=== PATIENT | male | born 1975 | race Asian ===

== ENCOUNTER 2022-06-04 13:47 | Outpatient (REF) | payer OTHER, SELFPAY ==
[2022-06-04 14:16] LABS: MANUAL DIFF FLAG NO
[2022-06-04 15:32] LABS: Basophils Percent Auto 0.3 % (0-2); Eosinophils Absolute Auto 0.1 X10*3/uL (0.0-0.4); Eosinophils Percent Auto 1.6 % (0-4); Hematocrit 44.1 % (42.0-52.0); Hemoglobin 14.6 g/dl (14.0-18.0); Imm Gran Abs Auto 0.01 X10*3/uL (0.00-0.03); Imm Gran Pct Auto 0.2 % (0.0-0.4); Lymphocytes Absolute Auto 1.7 X10*3/uL (1.2-4.9); Lymphocytes Percent Auto 27.9 % (20-40); Mean Corpuscular HGB Conc 33.1 g/dl (31.0-36.0); Mean Corpuscular Volume 87.7 fL (80.0-98.0); Mean Platelet Volume 10.2 fL (9.4-12.4); Monocytes Absolute Auto 0.3 X10*3/uL (0.1-1.2); Monocytes Percent Auto 5.1 % (2-11); Neutrophils Percent Auto 64.9 % (45-73); Platelet Count 228 X10*3/uL (160-400); Red Blood Count 5.03 X10*6/uL (4.60-5.80); Red Cell Distribution Width 13.3 % (11.0-16.0); White Blood Count 6.1 X10*3/uL (4.8-10.8)
[2022-06-04 16:20] LABS: Erythrocyte Sedimentation Rate 5 MM/HR (0-15)
[2022-06-04 17:49] LABS: Alanine Aminotransferase 16 U/L (0-40); Albumin Level 4.5 g/dL (3.5-5.0); Alkaline Phosphatase 70 U/L (39-117); Anion Gap 11 (12-20); Aspartate Amino Transferase 21 U/L (5-37); Bilirubin Total 0.4 mg/dL (0.0-1.0); Blood Urea Nitrogen 19 mg/dL (9-16); C Reactive Protein < 0.10 mg/dL (< or = 0.50); Calcium 9.8 mg/dL (8.4-10.2); Carbon Dioxide 27 mmol/L (22-29); Chloride 105 mmol/L (96-108); Cholesterol 195 mg/dL; Estimated Glomerular Filt Rate 55; Glucose Random 93 mg/dL (60-115); HDL Cholesterol 41 mg/dL; LDL Cholesterol Calculated 134 mg/dl; Potassium 4.6 mmol/L (3.3-5.1); Sodium 138 mmol/L (135-145); Total Protein 7.2 g/dL (6.5-8.0); Triglycerides 103 mg/dL; Uric Acid 7.4 mg/dL (3.4-7.0)
[2022-06-04 20:50] LABS: Estimated Average Glucose 108 mg/dL; Hemoglobin A1c % 5.4 %
== END 2022-06-04 13:48 | disposition home or self-care (01) ==
LOC: HO.LAB 13:47
PROVIDERS: PCP Pediatrics; Visit Provider Student in an Organized Health Care Education/Training Program
DX: M10.9 Gout, unspecified (principal); E88.81 Metabolic syndrome and other insulin resistance
CPT/HCPCS: 36415; 80053; 80061; 83036; 84550; 85025; 85652; 86140

== ENCOUNTER 2022-07-15 09:24 | Outpatient (REF) | payer OTHER, SELFPAY ==
[2022-07-15 09:43] LABS: MANUAL DIFF FLAG NO
[2022-07-15 10:30] LABS: Basophils Percent Auto 0.1 % (0-2); Eosinophils Absolute Auto 0.1 X10*3/uL (0.0-0.4); Hemoglobin 15.5 g/dl (14.0-18.0); Imm Gran Abs Auto 0.03 X10*3/uL (0.00-0.03); Imm Gran Pct Auto 0.3 % (0.0-0.4); Lymphocytes Absolute Auto 1.4 X10*3/uL (1.2-4.9); Lymphocytes Percent Auto 13.3 % (20-40); Mean Corpuscular Hemoglobin 29.1 pg (27.0-33.0); Mean Corpuscular Volume 88.3 fL (80.0-98.0); Mean Platelet Volume 10.3 fL (9.4-12.4); Monocytes Absolute Auto 0.7 X10*3/uL (0.1-1.2); Monocytes Percent Auto 6.6 % (2-11); Neutrophils Absolute Auto 8.1 x10*3/uL (2.0-8.3); Neutrophils Percent Auto 78.7 % (45-73); Platelet Count 238 X10*3/uL (160-400); Red Blood Count 5.32 X10*6/uL (4.60-5.80); Red Cell Distribution Width 13.2 % (11.0-16.0); White Blood Count 10.3 X10*3/uL (4.8-10.8)
[2022-07-15 10:54] LABS: Alanine Aminotransferase 19 U/L (0-40); Albumin Level 4.3 g/dL (3.5-5.0); Alkaline Phosphatase 78 U/L (39-117); Anion Gap 11 (12-20); Aspartate Amino Transferase 20 U/L (5-37); Bilirubin Total 0.3 mg/dL (0.0-1.0); Blood Urea Nitrogen 20 mg/dL (9-16); Calcium 9.8 mg/dL (8.4-10.2); Carbon Dioxide 26 mmol/L (22-29); Chloride 105 mmol/L (96-108); Estimated Glomerular Filt Rate 51; Glucose Random 92 mg/dL (60-115); Potassium 4.3 mmol/L (3.3-5.1); Sodium 138 mmol/L (135-145); Total Protein 7.4 g/dL (6.5-8.0); Uric Acid 5.3 mg/dL (3.4-7.0)
== END 2022-07-15 09:25 | disposition home or self-care (01) ==
LOC: HO.LAB 09:24
PROVIDERS: PCP Pediatrics; Visit Provider Student in an Organized Health Care Education/Training Program
DX: M1A.3790 Chronic gout due to renal impairment, unspecified ankle and foot, without tophus (tophi) (principal)
CPT/HCPCS: 36415; 80053; 84550; 85025

== ENCOUNTER → 2022-08-29 09:06 | Outpatient (BNVA) | payer OTHER, SELFPAY | PROVIDERS: PCP Pediatrics; Visit Provider Student in an Organized Health Care Education/Training Program | DX: Z13.89 Encounter for screening for other disorder (principal) ==

== ENCOUNTER 2023-02-21 11:58 | Outpatient (REF) | payer OTHER, SELFPAY ==
[2023-02-21 12:15] LABS: MANUAL DIFF FLAG NO
[2023-02-21 12:49] LABS: Basophils Percent Auto 0.3 % (0-2); Eosinophils Absolute Auto 0.1 X10*3/uL (0.0-0.4); Eosinophils Percent Auto 1.2 % (0-4); Hematocrit 44.8 % (42.0-52.0); Hemoglobin 14.5 g/dl (14.0-18.0); Imm Gran Abs Auto 0.02 X10*3/uL (0.00-0.03); Imm Gran Pct Auto 0.3 % (0.0-0.4); Lymphocytes Absolute Auto 1.7 X10*3/uL (1.2-4.9); Lymphocytes Percent Auto 26.5 % (20-40); Mean Corpuscular HGB Conc 32.4 g/dl (31.0-36.0); Mean Corpuscular Hemoglobin 29.1 pg (27.0-33.0); Mean Corpuscular Volume 89.8 fL (80.0-98.0); Mean Platelet Volume 9.7 fL (9.4-12.4); Monocytes Absolute Auto 0.4 X10*3/uL (0.1-1.2); Monocytes Percent Auto 5.8 % (2-11); Neutrophils Absolute Auto 4.3 x10*3/uL (2.0-8.3); Neutrophils Percent Auto 65.9 % (45-73); Platelet Count 202 X10*3/uL (160-400); Red Blood Count 4.99 X10*6/uL (4.60-5.80); Red Cell Distribution Width 14.1 % (11.0-16.0); White Blood Count 6.5 X10*3/uL (4.8-10.8)
[2023-02-21 13:21] LABS: Alanine Aminotransferase 14 U/L (0-40); Albumin Level 4.2 g/dL (3.5-5.0); Alkaline Phosphatase 67 U/L (39-117); Anion Gap 13 (12-20); Aspartate Amino Transferase 18 U/L (5-37); Bilirubin Total 0.4 mg/dL (0.0-1.0); Blood Urea Nitrogen 17 mg/dL (9-16); Calcium 9.2 mg/dL (8.4-10.2); Carbon Dioxide 22 mmol/L (22-29); Chloride 108 mmol/L (96-108); Estimated Glomerular Filt Rate 58; Glucose Random 95 mg/dL (60-115); Potassium 4.3 mmol/L (3.3-5.1); Sodium 139 mmol/L (135-145); Total Protein 6.9 g/dL (6.5-8.0)
== END 2023-02-21 11:59 | disposition home or self-care (01) ==
LOC: HO.LAB 11:58
PROVIDERS: Visit Provider Student in an Organized Health Care Education/Training Program
DX: M10.9 Gout, unspecified (principal)
CPT/HCPCS: 36415; 80053; 84550; 85025

== ENCOUNTER 2023-02-26 09:06 | Outpatient (AMB) | payer OTHER, SELFPAY ==
--- NOTE | 2023-02-26 09:10 | MHC.OFFVIS ---
Intake Vital Signs 02/26/23 09:11 Height 5 ft 7 in Weight 162 lb 0.636 oz BMI 25.4 BP 126/70 Blood Pressure Location Rt brachial Position Sitting Pulse 70 Pulse Source Pulse Oximeter Pulse Oximetry (%) 98 Oxygen Delivery Method Room Air Intake Visit Reasons: Gout Intake Note: Patient presents for follow up gout. Allergies No Known Allergies Allergy (Verified 02/26/23 09:13) Medication List - Last Reconciled 02/26/23 by Kamar Oneal MD allopurinol 200 mg (2 x 100 mg) PO DAILY colchicine 0.6 mg PO .every 3rd day HPI HPI Comments History of Present Illness Details This is a 47-year-old male with gout who presents for follow-up. Three weeks ago patient had a gout flare affecting his left big toe. He was taking a trip to the [employer] in [place] with his children and he was walking quite a lost. He also skip the allopurinol dose for 2 days. He had not been taking the colchicine. He reached out to Dr. Grant and he was prescribed a prednisone taper for 9 days which significantly improved his pain and swelling. Currently patient feels well overall. He continues to have some pain however in his left big toe when he bends his left big toe during prayer. Initial history: This is a 47-year-old male with a past medical history of CKD (unknown cause) presents for evaluation of gout. Condition started about a year and half ago with pain and swelling affecting his big toe. The gout attack alternates between the left and right feet. He would take Aleve which does seem to help. However he had the significant attack at the end of February of 2022 where he had to be prescribed prednisone which did give him significant relief. Denies any history of kidney stones. His brother and mother both have gout. Denies any other joint pain or swelling. 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 Review of Systems [facility] [place] Reports arthralgias and Reports joint swelling Physical Exam Vital Signs: Last Vital Signs Pulse 70 02/26/23 09:11 BP 126/70 02/26/23 09:11 Pulse Ox 98 02/26/23 09:11 Oxygen Delivery Method Room Air 02/26/23 09:11 BMI result Body Mass Index 25.4 Const General: cooperative, healthy appearing, comfortable and no acute distress Nutritional Appearance: average body habitus Orientation/consciousness: patient oriented x3 Limitations: no limitations HEENT Head: Yes normocephalic and Yes atraumatic Resp Effort & Inspection: normal respiratory effort and able to speak in complete sentences Neuro General: patient oriented x3 Extrem Other: Minimal swelling and tenderness over his left 1st MTP joint No gouty tophi Small bunions bilaterally Assessment & Plan Assessment & Plan (1) Gout: Code(s): M10.9 - Gout, unspecified Qualifiers: Gout site: toe Gout etiology: due to renal impairment Chronicity: chronic Laterality: unspecified laterality Presence of tophus: without tophus Qualified Code(s): M1A.3790 - Chronic gout due to renal impairment, unspecified ankle and foot, without tophus (tophi) Plan: 47-year-old male with a past medical history of CKD (unclear etiology, stable for many years) who presents for gout follow-up. Patient had a gout flare 3 weeks ago affecting his left 1st MTP. This was during a trip to the [employer] in [place] and patient had skipped allopurinol for 2 days. This was treated with a prednisone taper. On exam today patient continues to have minimal swelling and tenderness in his left 1st MTP. Advised patient to be compliant with allopurinol 200 mg daily take colchicine 0.6 mg daily for 1 week to treat the remainder of the current flare and take colchicine 0.6 mg 2-3 days a week for prophylaxis. Labs before next visit in 6 months Orders: Orders Comprehensive Met. Panel 6 Months M10.9 - Gout, unspecified Uric Acid 6 Months M10.9 - Gout, unspecified Complete Blood Count Auto Diff 6 Months M10.9 - Gout, unspecified Coding Level of Care Code Est Pt Level 3 (74242) Diagnoses Gout M1A.3790 Gout site: toe Gout etiology: due to renal impairment Chronicity: chronic Laterality: unspecified laterality Presence of tophus: without tophus
[2023-02-26 09:11] VITALS: BP 126/70; PULSE 70; O2SAT 98; BMI 25.4
== END 2023-02-26 09:27 | disposition home or self-care (01) ==
PROVIDERS: PCP Pediatrics; Visit Provider Student in an Organized Health Care Education/Training Program
DX: M1A.3790 Chronic gout due to renal impairment, unspecified ankle and foot, without tophus (tophi) (principal)
CPT/HCPCS: 99213

== ENCOUNTER → 2023-02-26 09:06 | Outpatient (BNVA) | payer OTHER, SELFPAY | PROVIDERS: Visit Provider Student in an Organized Health Care Education/Training Program ==

== ENCOUNTER 2023-09-17 09:18 | Outpatient (REF) | payer OTHER, SELFPAY ==
[2023-09-17 09:34] LABS: MANUAL DIFF FLAG NO
[2023-09-17 09:52] LABS: Basophils Percent Auto 0.3 % (0-2); Eosinophils Absolute Auto 0.1 X10*3/uL (0.0-0.4); Hematocrit 46.3 % (42.0-52.0); Hemoglobin 15.1 g/dl (14.0-18.0); Imm Gran Abs Auto 0.02 X10*3/uL (0.00-0.03); Imm Gran Pct Auto 0.3 % (0.0-0.4); Lymphocytes Absolute Auto 1.6 X10*3/uL (1.2-4.9); Mean Corpuscular HGB Conc 32.6 g/dl (31.0-36.0); Mean Corpuscular Hemoglobin 29.2 pg (27.0-33.0); Mean Corpuscular Volume 89.6 fL (80.0-98.0); Mean Platelet Volume 9.7 fL (9.4-12.4); Monocytes Absolute Auto 0.5 X10*3/uL (0.1-1.2); Monocytes Percent Auto 6.3 % (2-11); Neutrophils Absolute Auto 4.9 x10*3/uL (2.0-8.3); Neutrophils Percent Auto 69.1 % (45-73); Platelet Count 196 X10*3/uL (160-400); Red Blood Count 5.17 X10*6/uL (4.60-5.80); Red Cell Distribution Width 13.3 % (11.0-16.0); White Blood Count 7.1 X10*3/uL (4.8-10.8)
[2023-09-17 10:21] LABS: Alanine Aminotransferase 17 U/L (0-40); Albumin Level 4.3 g/dL (3.5-5.0); Alkaline Phosphatase 94 U/L (39-117); Anion Gap 11 (12-20); Aspartate Amino Transferase 23 U/L (5-37); Bilirubin Total 0.5 mg/dL (0.0-1.0); Blood Urea Nitrogen 17 mg/dL (9-16); Calcium 9.3 mg/dL (8.4-10.2); Carbon Dioxide 27 mmol/L (22-29); Chloride 107 mmol/L (96-108); Estimated Glomerular Filt Rate 52; Glucose Random 94 mg/dL (60-115); Potassium 4.2 mmol/L (3.3-5.1); Sodium 141 mmol/L (135-145); Total Protein 7.6 g/dL (6.5-8.0); Uric Acid 5.7 mg/dL (3.4-7.0)
== END 2023-09-17 09:19 | disposition home or self-care (01) ==
LOC: HO.LAB 09:18
PROVIDERS: PCP Pediatrics; Visit Provider Student in an Organized Health Care Education/Training Program
DX: M10.9 Gout, unspecified (principal)
CPT/HCPCS: 36415; 80053; 84550; 85025

== ENCOUNTER 2023-09-18 14:01 | Outpatient (AMB) | payer OTHER, SELFPAY ==
--- NOTE | 2023-09-18 14:10 | A.OFFVIS_ITS ---
Intake Vital Signs 09/18/23 14:11 Height 5 ft 7 in Weight 163 lb 12.855 oz BMI 25.7 BP 118/60 Blood Pressure Location Rt brachial Position Sitting Pulse 63 Pulse Source Pulse Oximeter Temp 97.3 F Temp Source Skin Pulse Oximetry (%) 99 Oxygen Delivery Method Room Air Intake Visit Reasons: Gout Intake Note: Patient last seen 02/26/23 presents today for follow up and test results. 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 He is on allopurinol 200 mg daily and takes colchicine once weekly for prophylaxis. He has not had any gout flare-ups since last visit. No complaints today Initial history: This is a 47-year-old male with a past medical history of CKD (unknown cause) presents for evaluation of gout. Condition started about a year and half ago with pain and swelling affecting his big toe. The gout attack alternates between the left and right feet. He would take Aleve which does seem to help. However he had the significant attack at the end of February of 2022 where he had to be prescribed prednisone which did give him significant relief. Denies any history of kidney stones. His brother and mother both have gout. Denies any other joint pain or swelling. 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 [employer] Denies arthralgias, Denies joint swelling and Denies stiffness Physical Exam Vital Signs: Last Vital Signs Temp 97.3 F 09/18/23 14:11 Pulse 63 09/18/23 14:11 BP 118/60 09/18/23 14:11 Pulse Ox 99 09/18/23 14:11 Oxygen Delivery Method Room Air 09/18/23 14:11 BMI result Body Mass Index 25.7 Const General: cooperative, healthy appearing, comfortable and no acute distress Nutritional Appearance: average body habitus Orientation/consciousness: patient oriented x3 Limitations: no limitations HEENT Head: Yes normocephalic and Yes atraumatic Resp Effort & Inspection: normal respiratory effort and able to speak in complete sentences Neuro General: patient oriented x3 Extrem Other: No active synovitis No tophi noted Results Reviewed Results Reviewed: 93 118?High? https://Minglebox.[employer]rain/c ommon/link.asp?LINKID&303 ?CM 87 https://[employer]/iogynLink/common/link.asp?LINKID&304 ? CM Comment:?Reference range applicable to fasting specimens only Blood Urea Nitrogen 5 - 25 mg/dL 18 19 https://[employer]/iogynLink/common/link.asp?LINKID&305 24 https://[employer]/CarePaymentCareLink/common/link.asp?LINKID&306 19 https://[employer]/iogynLink/common/link.asp?LINKID&307 24 https://[employer]/CarePaymentCareLink/common/link.asp?LINKID&308 CREAT 0.7 - 1.3 mg/dL 1.52?High? 1.56?High? https://[employer]/CarePaymentCareLink/common/link.asp?LINKID&309 1.54?High? https://[employer]/iogynLink/common/l ink.asp?LINKID&310 1.5 https://[employer]/iogynLink/common/link.asp?LINKID&311 ?R 1.6?High? https://[employer]/EpicCareLink/common/link.asp?LINKID&312 ?R GLOMERULAR FILTRATION RATE 50 49 https://Minglebox.enStage.EVRST/EpicCareLink/common/link.asp?LINKID&313 ? CM 50 https://[employer]. enStage.EVRST/EpicCareLink/common/link.asp?LINKID&314 ?CM 55?Low? https://[employer]ingle[employer].enStage.EVRST/EpicCareLink/common/link.asp?LINKID&315 ? R, CM 53 https://Mingle[employer].enStage.EVRST/CarePaymentCareLink/common/link.asp?LINKID&316 ? CM Comment:?If patient is -Spanish, multiply result by 1.21 Chronic Kidney Disease: < 60 ml/min/1.73 square meters Kidney Failure: < 15 ml/min/1.73 square meters NA 135 - 145 mEq/L 139 137 https://Minglebox.enStage.EVRST/EpicCareLink/common/link.asp?LINKID&317 140 https://[employer].enStage.EVRST/EpicCareLink/common/link.asp?LINKID&318 K 3.5 - 5.5 mmol/L 4.1 4.4 https://Mingle[employer].enStage.EVRST/EpicCareLink/common/link.asp?LINKID&319 4.0 https://[employer]ment [employer].EVRST/Epi cCareLink/common/link.asp?LINKID&320 CL 96 - 110 mmol/L 107 106 https://Mingle[employer].enStage.EVRST/EpicCareLink/common/link.asp?LINKID&321 104 https://[employer].EVRST/EpicCareLink/common/link.asp?LINKID&322 104 https://[employer].Zuppler/EpicCareLink/common/link.asp?LINKID&323 ?R 105 https://[employer].EVRST/EpicCareLink/common/link.asp?LINKID&324 ?R CARBON DIOXIDE (CO2) 21 - 32 mmol/L 27 27 https://Minglebox .[employer]gogo/EpicCareLink/common/link.asp?LINKID&325 27 https://Minglebox.enStage.EVRST/EpicCareLink/common/link.asp?LINKID&326 26.6 https://Minglebox.enStage.EVRST/EpicCareLink/common/link.asp?LINKID&327 ?R 22.3 https://I Like My Waitresslink.enStage. o m/EpicCareLink/common/link.asp?LINKID&328 ?R ANION GAP 3 - 11 5 4 https://Minglebox. [employer] Player/EpicCareLink/common/link.asp?LINKID&329 9 https://Minglebox.enStage.EVRST/EpicCareLink/common/link.asp?LINKID&330 CALCIUM 8.5 - 10.5 mg/dL 9.0 10.2 https://Minglebox.enStage.EVRST/EpicCareLink/common/link.asp?LINKID&331 9.4 https://Minglebox.enStage.EVRST/EpicCareLink/common/link.asp?LINKID&332 9.7 https://Minglebox.enStage.EVRST/EpicCareLink/common/link.asp?LINKID&333 9.7 https://Minglebox.enStage.EVRST/EpicCareLink/common/link.asp?LINKID&334 TOTAL PROTEIN (TP) 6.0 - 8.0 G/dL 7.0 7.6 https://Minglebox.enStage.EVRST/EpicCareLink/common/link.asp?LINKID&335 7.4 https://Minglebox.enStage.EVRST/EpicCareL ink/common/link.asp?LINKID&336 Albumin 3.2 - 5.0 G/dL 3.8 4.3 https://Minglebox.enStage.EVRST/EpicCareLink/common/link.asp?LINKID&337 4.2 https://Minglebox.enStage.EVRST/EpicCareLink/common/link.asp?LINKID&338 4.5 https://Minglebox .[employer]uppler/EpicCareLink/common/link.asp?LINKID&339 ?R 4.4 https://Minglebox.enStage.EVRST/EpicCareLink/common/link.asp?LINKID&340 ?R SGOT 10 - 42 U/L 18 20 https://Minglebox. [employer]/EpicCareLink/co mmon/link.asp?LINKID&341 21 https://[employer]/EpicCareLink/common/link.asp?LINKID&342 19 https://Minglebox.enStage.EVRST/EpicCareLink/common/link.asp?LINKID&343 19 https://[employer]/CarePaymentCareLink/common/link.asp?LINKID&344 SGPT 10 - 60 U/L 20 34 https://[employer]/EpicCareLink/common/link.asp?LINKID&345 22 https://Minglebox.enStage.EVRST/EpicCareLink/common/link.asp?LINKID&346 BILIRUBIN TOTAL 0.0 - 1.4 mg/dL 0.4 0.3 https ://Minglebox.enStage.EVRST/EpicCareLink/common/link.asp?LINKID&347 0.4 https://Minglebox.enStage.EVRST/EpicCareLink/common/link.asp?LINKID&348 0.4 https://Minglebox.enStage.EVRST/EpicCareLink/common/link.asp?LINKID&349 ?R 0.3 https://[facility] hospitalHangar Seven.enStage.EVRST/EpicCareLink/common/link.asp?LINKID&350 ?R ALK PHOS 42 - 121 U/L 74 Assessment & Plan Assessment & Plan (1) Gout: Code(s): M10.9 - Gout, unspecified Qualifiers: Gout site: toe Gout etiology: due to renal impairment Chronicity: chronic Laterality: unspecified laterality Presence of tophus: without tophus Qualified Code(s): M1A.3790 - Chronic gout due to renal impairment, unspecified ankle and foot, without tophus (tophi) Plan: 48-year-old male with a past medical history of CKD (unclear etiology, stable for many years) who presents for gout follow-up. On allopurinol 200 mg daily and colchicine 0.6 mg once weekly for prophylaxis. No gout flare-ups over the last 6 months. Uric acid level at target 5.7 At this point patient's gout is well controlled. He should continue with this regimen. He can follow-up with his PCP and follow-up with me as needed Plan I spent 15 minutes reviewing patient's chart, evaluating patient, counseling patient and documenting in the chart Coding Level of Care Code Est Pt Level 3 (96312) Diagnoses Chronic gout due to renal impairment involving toe without tophus, unspecified laterality M1A.3790 Gout site: toe Gout etiology: due to renal impairment Chronicity: chronic Laterality: unspecified laterality Presence of tophus: without tophus
[2023-09-18 14:11] VITALS: BP 118/60; PULSE 63; TEMP 36.3; O2SAT 99; BMI 25.7
== END 2023-09-18 14:28 | disposition home or self-care (01) ==
PROVIDERS: PCP Pediatrics; Visit Provider Student in an Organized Health Care Education/Training Program
DX: M1A.3790 Chronic gout due to renal impairment, unspecified ankle and foot, without tophus (tophi) (principal)
CPT/HCPCS: 99213

== ENCOUNTER → 2023-09-18 14:01 | Outpatient (BNVA) | payer OTHER, SELFPAY | PROVIDERS: PCP Pediatrics; Visit Provider Student in an Organized Health Care Education/Training Program ==

== ENCOUNTER 2024-05-19 13:57 | Outpatient (AMB) | payer OTHER, SELFPAY ==
--- NOTE | 2024-05-19 13:59 | A.OFFVIS_ITS ---
Vital Signs 05/19/24 14:03 Height 5 ft 7 in Weight 158 lb 4.67 oz BMI 24.8 BP 115/62 Blood Pressure Location Lt brachial Position Sitting Pulse 67 Pulse Source Pulse Oximeter Pulse Oximetry (%) 98 Oxygen Delivery Method Room Air Intake Visit Reasons: Gout Intake Note: Patient presents for Gout. Allergies No Known Allergies Allergy (Verified 05/19/24 14:02) Medication List - Last Reconciled 05/19/24 by Kamar Oneal MD allopurinol 200 mg (2 x 100 mg) PO DAILY colchicine 0.6 mg PO .every 3rd day HPI Comments Details: This is a 49-year-old male with gout who presents for follow-up. He is on allopurinol 200 mg daily and takes colchicine sparingly as needed for gout attacks. Has not gout attacks for a few months now. He is here for medication refill. Initial history: This is a 47-year-old male with a past medical history of CKD (unknown cause) presents for evaluation of gout. Condition started about a year and half ago with pain and swelling affecting his big toe. The gout attack alternates between the left and right feet. He would take Aleve which does seem to help. However he had the significant attack at the end of February of 2022 where he had to be prescribed prednisone which did give him significant relief. Denies any history of kidney stones. His brother and mother both have gout. Denies any other joint pain or swelling. 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 [employer] Denies arthralgias, Denies joint swelling and Denies stiffness Physical Exam Vital Signs: Last Vital Signs Pulse 67 05/19/24 14:03 BP 115/62 05/19/24 14:03 Pulse Ox 98 05/19/24 14:03 Oxygen Delivery Method Room Air 05/19/24 14:03 BMI result Body Mass Index 24.8 Const General: cooperative, healthy appearing, comfortable and no acute distress Nutritional Appearance: average body habitus Orientation/consciousness: patient oriented x3 Limitations: no limitations HEENT Head: Yes normocephalic and Yes atraumatic Resp Effort & Inspection: normal respiratory effort and able to speak in complete sentences Neuro General: patient oriented x3 Extrem Other: No active synovitis No tophi noted Assessment & Plan Assessment & Plan (1) Gout: Code(s): M10.9 - Gout, unspecified Category: Medical Qualifiers: Gout site: toe Gout etiology: due to renal impairment Chronicity: chronic Laterality: unspecified laterality Presence of tophus: without tophus Qualified Code(s): M1A.3790 - Chronic gout due to renal impairment, unspecified ankle and foot, without tophus (tophi) Plan: 49-year-old male with a past medical history of CKD (unclear etiology, stable for many years) who presents for gout follow-up. On allopurinol 200 mg daily and colchicine 0.6 mg only as needed. Has not had gout flare-ups o over the last 3-4 months. At this point patient's gout is well controlled. He should continue with this regimen. Continue with allopurinol 200 mg daily Labs before next visit in 1 year Plan I spent 15 minutes reviewing patient's chart, evaluating patient, ordering diagnostic workup, counseling patient and documenting in the chart Orders: Orders Comprehensive Met. Panel 1 Year M1A.3790 - Chronic gout due to renal impairment, unspecified ankle and foot, without tophus (tophi) Uric Acid 1 Year M1A.3790 - Chronic gout due to renal impairment, unspecified ankle and foot, without tophus (tophi) Medications: Refilled allopurinol 200 mg (2 x 100 mg) PO DAILY 180 tabs 3RF M1A.3790 - Chronic gout due to renal impairment, unspecified ankle and foot, without tophus (tophi) Coding Level of Care Code Est Pt Level 3 (01160) Diagnoses Chronic gout due to renal impairment involving toe without tophus, unspecified laterality M1A.3790 Gout site: toe Gout etiology: due to renal impairment Chronicity: chronic Laterality: unspecified laterality Presence of tophus: without tophus
[2024-05-19 14:03] VITALS: BP 115/62; PULSE 67; O2SAT 98; BMI 24.8
== END 2024-05-19 14:20 ==
PROVIDERS: PCP Pediatrics; Visit Provider Student in an Organized Health Care Education/Training Program
DX: M1A.3790 Chronic gout due to renal impairment, unspecified ankle and foot, without tophus (tophi) (principal)
CPT/HCPCS: 99213

== ENCOUNTER → 2024-05-19 13:57 | Outpatient (BNVA) | payer OTHER, SELFPAY | PROVIDERS: PCP Pediatrics; Visit Provider Student in an Organized Health Care Education/Training Program ==